=== PATIENT | female | born 1965 | race Hispanic/Latino ===

== ENCOUNTER → 2020-01-14 | Outpatient (CLI) | payer BC, OTHER | END | disposition home or self-care (01) | LOC: RAH 08:08 | PROVIDERS: ATTEND Physician Assistant Medical | DX: Z12.31 Encounter for screening mammogram for malignant neoplasm of breast (principal) | CPT/HCPCS: 77067 ==

== ENCOUNTER → 2023-12-10 | Outpatient (CLI) | payer BC, OTHER | END | disposition home or self-care (01) | LOC: RAH 10:56 | PROVIDERS: ATTEND Physician Assistant Medical | DX: Z12.31 Encounter for screening mammogram for malignant neoplasm of breast (principal) | CPT/HCPCS: 77067 ==

== ENCOUNTER → 2024-04-01 | Outpatient (CLI) | payer BC | END | disposition home or self-care (01) | LOC: RAH 10:01 | PROVIDERS: ATTEND Internal Medicine | DX: K80.20 Calculus of gallbladder without cholecystitis without obstruction (principal); R10.11 Right upper quadrant pain; R10.13 Epigastric pain | CPT/HCPCS: 76700 ==

== ENCOUNTER → 2024-10-29 | Outpatient (CLI) | payer BC, OTHER ==
--- NOTE | 2024-10-29 14:02 | HMCIMG ---
Exam: Right and left 3 view knee exams, 6 views total. Reason: Osteoarthritis. FINDINGS: Both knees show normal findings. Joint spaces are well preserved. There are no osteophytes. There is no varus or valgus angulation. There is no evidence of joint effusion. IMPRESSION: 1. Normal 3 view exam of the right and of the left knee.
== END | disposition home or self-care (01) ==
LOC: RAH 09:54
PROVIDERS: ATTEND Internal Medicine
DX: M17.0 Bilateral primary osteoarthritis of knee (principal)

== ENCOUNTER → 2025-02-11 | Outpatient (CLI) | payer BC, OTHER ==
--- NOTE | 2025-02-11 14:07 | HMCIMG ---
TRANSVAGINAL ULTRASOUND ULTRASOUND ABD VASCULAR LIMITED INDICATION: Pelvic mass COMPARISONS: None TECHNIQUE: Transvaginal real-time sonographic images were acquired earlier, and subsequently made available for review. FINDINGS: Transvaginal imaging was performed to better delineate pelvic anatomy. Uterus is surgically absent. The right ovary measures 1.9 x 1.5 x 1.8 cm. 1.3 cm right ovarian dominant follicle. The right ovary is otherwise normal in size, shape and echogenicity. No right adnexal masses demonstrated. Color Doppler flow is normal throughout the right ovary. Spectral Doppler analysis demonstrates a normal waveform pattern. The left ovary is obscured by overlying bowel gas. No free pelvic fluid demonstrated. IMPRESSION: No acute pelvic abnormality noted.
== END | disposition home or self-care (01) ==
LOC: RAH 13:27
PROVIDERS: ATTEND Obstetrics & Gynecology
DX: R19.00 Intra-abdominal and pelvic swelling, mass and lump, unspecified site (principal); Z90.710 Acquired absence of both cervix and uterus
CPT/HCPCS: 76830